=== PATIENT | male | born 1990 | race Caucasian/White ===

== ENCOUNTER 2021-06-10 10:40 | Emergency (ER) | payer SELFPAY ==
[~2021-06-10] VITALS: Ht 172.7 cm; Wt 77.3 kg
[2021-06-10] MEDS ORDERED: LIDOCAINE/PF 1% 2 ML VIAL IM ONE (11:45)
[2021-06-10] MEDS ORDERED: CefTRIAXone SODIUM 1 GM/VIAL IM ONE (11:45)
[2021-06-10 12:38] VITALS: BP 135/75
[2021-06-10] MEDS ORDERED: DOXY-354 PO (13:36)
== END 2021-06-10 13:44 | disposition home or self-care (01) ==
LOC: EMS 10:40
DX: N34.2 Other urethritis (principal); F12.90 Cannabis use, unspecified, uncomplicated
CPT/HCPCS: 87491; 87591; 96372; 99283; J0696; J3490

== ENCOUNTER 2021-07-24 20:37 | Emergency (ER) | payer SELFPAY ==
[~2021-07-24] VITALS: Ht 170.2 cm; Wt 72.7 kg
[~2021-07-24 20:37] MED LIST: DOXY-354 PO
[2021-07-24] MEDS ORDERED: DOXYCYCLINE HYCLATE 100 MG TABLET PO ONE (23:30)
[2021-07-24] MEDS ORDERED: LIDOCAINE/PF 1% 2 ML VIAL IM ONE (23:30)
[2021-07-24] MEDS ORDERED: CefTRIAXone SODIUM 1 GM/VIAL IM ONE (23:30)
[2021-07-24] MEDS ORDERED: DOXY-354 PO (23:31)
[2021-07-25 00:11] VITALS: BP 116/63
== END 2021-07-25 00:17 | disposition home or self-care (01) ==
LOC: EMS 23:06
DX: Z20.2 Contact with and (suspected) exposure to infections with a predominantly sexual mode of transmission (principal); Z53.21 Procedure and treatment not carried out due to patient leaving prior to being seen by health care provider; F12.90 Cannabis use, unspecified, uncomplicated; F17.210 Nicotine dependence, cigarettes, uncomplicated
CPT/HCPCS: 96372; 99283; J0696; J3490